=== PATIENT | female | born 1980 | race Caucasian/White ===

== ENCOUNTER → 2017-01-05 | Outpatient (CLI) | payer BC ==
[~2017-01-05] MED LIST: AMOX500C5 PO
[2017-01-05 18:21] VITALS: BP 111/64
--- NOTE | 2017-01-05 18:21 | Urgent Care T Sheet Gen (E) ---
Intake General Temperature (Fahrenheit): 98.4 Pulse: 89 Blood Pressure Systolic: 111 Blood Pressure Diastolic: 64 Respirations: 16 SPO2: 98 Chief Complaint: sore throat Source: Patient History of Present Illness Initial Comments Pt notes that the last 2 days she has had a sore throat. She thinks maybe she has a low grade fever. No fatigue. Had strep throat approx 1 month ago. No cough. Mild drainage. Respiratory Constitutional Symptoms: See HPI EENTM: See HPI Throat pain Respiratory: No symptoms reported Cardiovascular: No symptoms reported Gastrointestinal/Abdominal: No symptoms reported Skin: No symptoms reported All Other Systems Reviewed Remaining Systems: All other systems reviewed with negative findings Past [id number] Hx Patient's Social History Alcohol Use: Occasionally Uses Smoking Status: Never smoker Physical Exam Physical Exam General Appearance: WD/WN No apparent distress Eyes, Ears, Nose, Throat Ex: PERRL/EOMI TMs normal Pharyngeal erythema Neck Exam: Non tender Full range of motion Normal inspection Normal thyroid Lymphadenopathy (left LAD noted) Respiratory Exam: Lungs clear Normal breath sounds Cardiovascular Exam: Regular rate, rhythm No edema Skin Exam: Normal color Warm/dry/intact Progress/Orders Lab Results Labs Results: Rapid Strep (positive) Departure Urgent Care Impression Chief Complaint: sore throat Impression: Primary Impression: Strep pharyngitis Departure Disposition: 01 HOME OR SELF-CARE Condition: Stable Referrals: Mariluz Taveras (PCP) Additional Instructions: Take all of the Amoxicillin as prescribed below. Follow-up with Primary Care Provider as needed. Return to UC or ER if further symptoms or concerns. Discharge instructions verbally given to Patient. Patient verbalizes discharge instructions. Scripts Amoxicillin (Amoxil)500 Mg Capsule1,000 Mg PO BID Infection #40 CAP Ref 0 2 tabs po bid x 10 days Prov:MELANIE KRISHNAN 01/05/17 End of report . MELANIE KRISHNAN January 05, 2017 18:21
== END ==
LOC: MHUC 17:43
PROVIDERS: ATTEND Physician Assistant
DX: J02.0 Streptococcal pharyngitis (principal)